=== PATIENT | male | born 1985 | race Caucasian/White ===

== ENCOUNTER 2024-05-10 18:59 | Emergency (ER) | payer BC, SELFPAY ==
[2024-05-10 19:01] VITALS: BP 168/111
--- NOTE | 2024-05-10 20:37 | ED.GENMED ---
History of Present Illness
General
Chief Complaint: Skin Surface Trauma
Source: patient and spouse
Exam Limitations: none
Time Seen by Provider: 05/10/24 19:40
Nursing documentation reviewed up to this point in time: agreed with
History of Present Illness
History of Present Illness:
The patient is a 39-year-old male past medical history of myocarditis presenting to the emergency department today with concerns of a injury to the left index. He claims he was using a table saw when a piece of wood kicked back hitting him on the
tip of the finger splinting his finger open. Denies any obvious debris to the area is in some pain denies any numbness weakness or difficulty with movement of the finger. He believes his last tetanus shot was over 5 years ago.
Past History
Past History
ED Past Medical History: None
ED Past Surgical History: Orthopedic
Social History
Tobacco: Non-smoker
Alcohol: Occasional
Drug: None
Personal: Single
Living: with family
Employment: Employed
Review of Systems
Review of Systems
Allergies reviewed?: Yes
All Other Systems: ROS reviewed and negative except as documented in HPI and ROS
Phy Exam
Physical Exam
Physical Exam:
GENERAL: Alert , in no apparent distress
EYE: pupils equal and reactive
NECK: Supple, no significant adenopathy.
ENT: o/p clr, mmm.
CARDIAC: Regular rate and rhythm .
LUNGS: Clear breath sounds bilaterally, no acute respiratory distress, no wheezes/rales/rhonchi
ABDOMEN: Soft, without focal tenderness, no r/g, no cvat
NEUROLOGICAL: Alert and oriented, no focal neuro deficits
SKIN: Laceration to the distal left index finger in a sagittal plane to the tip of the finger just to the radial side of the nailbed roughly 2.5 cm in total length warm and dry, skin intact.
MUSCULOSKELETAL: No edema, well perfused.
PSYCH: Normal and appropriate interaction.
Course
Orders/Labs/Results
Orders:
Orders
05/10/24 19:07
CR Finger(s)/thumb Min 2 Vw Lt Urgent
Comment:
Reason For Exam: table saw wound
Indicate Which Finger:: Index Finger
05/10/24 20:37
Cephalexin Monohydrate [Keflex] 500 mg PO NOW STA
Tetanus/Diphth/Acelpertussis [Adacel] 0.5 ml IM .ONCE ONE
Vital Signs
Initial and Last Documented VS:
Initial Vital Signs
Pulse Resp BP Pulse Ox
84 16 168/111 98
05/10/24 19:01 05/10/24 19:01 05/10/24 19:01 05/10/24 19:01
Last Documented Vital Signs
Pulse Resp BP Pulse Ox
84 16 168/111 98
05/10/24 19:01 05/10/24 19:01 05/10/24 19:01 05/10/24 19:01
Procedures
Laceration Closure
Left Distal Radial Second Finger:
Status of Wound: clean
Size of Wound in cm: 2.5
Description of Wound Edges: ragged
Preparation: cleaned with saline
Anesthesia: 2% Lidocaine and Digital-Regional
Revision/Debridement: minor revision and irrigate-direct pressure
Wound exploration: explored to base- no FB and no tendon involvement
Type of Closure: single layer closure
Skin Closure Material: 4-0 chromic gut
Number of sutures: 6
MDM/Problems Addressed
MDM/Problems Addressed:
39-year-old male presenting to the emergency department after sustaining laceration to his distal left index finger when a piece of wood kicked back from a table saw. Area was very clean in appearance explored to its base no signs of foreign body
irrigated thoroughly x-ray without signs of foreign body or fracture. Patient was given prophylactic antibiotics due to the moderate-sized laceration to the distal finger. This was closed with 6 dissolving stitches advised to keep the area clean
covered and given instructions for return for any signs of infection or complications.
Of note the patient's blood pressure was elevated while here. Likely secondary to patient's acute fingertip injury. He was advised to keep a close eye on his blood pressure at home and follow-up with the primary care doctor to ensure this is not a
chronically elevated number. Patient demonstrated understanding.
*Critical Care Note
Total Time (30-74mins, 75-104mins- exclusive of procedures): Not Applicable
ED Attending Note
-
Portions of this chart may have been created with voice recognition software.� Occasional wrong word or��sound alike� substitutions may have occurred due to the inherent limitations of voice recognition software.
Discharge Plan
Departure
Patient Disposition: Home (Routine Discharge)
Date of Disposition: 05/10/24
Time of Disposition: 20:38
Patient with high blood pressure during this ER visit?: Yes
Condition: Good
Covid-19: Not Applicable
Discharge Problem:
Finger laceration
Instructions: Laceration Repair With Stitches (DC), BLOOD PRESSURE
Prescriptions:
New
cephalexin 500 mg capsule
500 mg PO TID 3 Days Qty: 9 0RF
Referrals:
Aleksandar Epps MD [Family Provider] -
Activity Restrictions/Additional Instructions:
You came to the emergency department today with concerns of an injury to your left index finger. This was closed with 6 total dissolving stitches. Please keep the area clean covered and follow-up with the hand doctor as needed. Return to the
emergency department for any worsening, new or concerning symptoms.
Interventions
Interventions:
*Risk Screen - Suicide Last Done: 05/10/24 20:16
*General Assessment Last Done: 05/10/24 20:16
*Neglect/Abuse Screening Last Done: 05/10/24 20:16
ED-Skin Assessment Last Done: 05/10/24 20:16
Discharge Date and Time
Print Language: [place]
[2024-05-10] MEDS: KEFLEX 500 MG PO (21:02)
[2024-05-10] MEDS: ADACEL 0.5 ML IM (21:04)
[2024-05-10 21:25] VITALS: BP 161/109
[2024-05-10 21:27] VITALS: BP 161/109
== END 2024-05-10 21:27 | disposition home or self-care (01) ==
LOC: EMR 18:59
PROVIDERS: EMERGENCY PHYSICIAN Student in an Organized Health Care Education/Training Program; FAMILY PHYSICIAN Internal Medicine
DX: S61.211A Laceration without foreign body of left index finger without damage to nail, initial encounter (principal); W45.8XXA Other foreign body or object entering through skin, initial encounter; Z23 Encounter for immunization; Z86.79 Personal history of other diseases of the circulatory system
CPT/HCPCS: 99283; 12001; 90471; 73140; 90715